=== PATIENT | male | born 1945 | race African-American/Black ===

== ENCOUNTER 2020-11-02 18:06 | Inpatient (IN) ==
[2020-11-02 20:40] LABS: Basophils # 0.1 K/mcL (0.0-0.2); Basophils % 0.4 %; Eosinophils # 0.1 K/mcL (0.0-0.6); Eosinophils % 1.1 %; Hematocrit 44.7 % (37.5-50.1); Hemoglobin 13.8 g/dL (12.9-16.9); Immature Granulocytes % 0.2 % (0-4); Lymphocytes # 2.6 K/mcL (0.6-4.6); Lymphocytes % 20.1 %; Mean Corpuscular HGB Conc 30.9 g/dL (31.6-35.5); Mean Corpuscular Hemoglobin 21.8 pg (28.0-33.3); Mean Corpuscular Volume 70.7 fL (83.0-100.0); Monocytes # 1.2 K/mcL (0.0-1.3); Monocytes % 9.3 %; Neutrophils # 8.9 K/mcL (1.6-8.9); Platelet Count 296 K/mcL (140-400); Red Blood Count 6.32 M/mcL (4.19-5.50); Red Cell Distribution Width 16.5 % (11.5-14.5); Segmented Neutrophils % 68.9 %; White Blood Count 12.9 K/mcL (4.3-11.1)
[2020-11-02 20:59] LABS: BUN/Creatinine Ratio 13 (6-26); Blood Urea Nitrogen 8 mg/dL (8-23); C-Reactive Protein 72 mg/L (Less than 10); Calcium 10.5 mg/dL (8.6-10.3); Carbon Dioxide 29 mEq/L (23-29); Chloride 101 mEq/L (98-107); Glucose 103 mg/dL (70-105); Osmolality,Calculated 287 (280-300); Potassium 3.6 mEq/L (3.5-5.1); Sodium 139 mEq/L (136-145); Uric Acid 7.5 mg/dL (2.3-7.6); eGFR For African Americans > 60 (> 60); eGFR For Non-African Americans > 60 (> 60)
[2020-11-03] MEDS ORDERED: *HR* HYDROcodone/Acet 5/325 mg TABLET PO ONE (01:13)
[2020-11-03] MEDS ORDERED: Acetaminophen 325 MG TABLET PO PRN (09:01)
[2020-11-03] MEDS ORDERED: Naloxone 0.4 MG/ML INJ IVP PRN (09:01)
[2020-11-03] MEDS ORDERED: *HR* HYDROcodone/Acet 5/325 mg TABLET PO PRN (09:01)
[2020-11-03] MEDS ORDERED: NIFEdipine XL (24 HR) 60 MG TAB.ER.24 PO ONE (14:07)
[2020-11-03] MEDS ORDERED: *HR* Metoprolol 5 MG/5 ML VIAL IVP PRN (15:20)
[2020-11-03] MEDS ORDERED: hydrOXYzine pamoate 25 MG CAPSULE PO PRN (17:40)
[2020-11-04] MEDS ORDERED: Haloperidol Lactate 5 MG/ML VIAL IVP ONE (01:20)
[2020-11-04] MEDS: Aspirin Enteric Coated 81 MG Tablet PO SCH (08:13)
[2020-11-04] MEDS: NIFEdipine XL (24 HR) 30 MG TAB.ER.24 PO SCH (08:13)
[2020-11-04 10:45] LABS: Hematocrit 44.4 % (37.5-50.1); Hemoglobin 13.8 g/dL (12.9-16.9); Mean Corpuscular HGB Conc 31.1 g/dL (31.6-35.5); Mean Corpuscular Hemoglobin 21.7 pg (28.0-33.3); Mean Corpuscular Volume 69.9 fL (83.0-100.0); Mean Platelet Volume 10.7 fL (9.4-12.4); Platelet Count 355 K/mcL (140-400); Red Blood Count 6.35 M/mcL (4.19-5.50); Red Cell Distribution Width 16.5 % (11.5-14.5)
[2020-11-04 11:04] LABS: BUN/Creatinine Ratio 18 (6-26); Blood Urea Nitrogen 13 mg/dL (8-23); Calcium 9.9 mg/dL (8.6-10.3); Carbon Dioxide 24 mEq/L (23-29); Chloride 99 mEq/L (98-107); Glucose 245 mg/dL (70-105); Osmolality,Calculated 288 (280-300); Potassium 3.4 mEq/L (3.5-5.1); Sodium 135 mEq/L (136-145); eGFR For African Americans > 60 (> 60); eGFR For Non-African Americans > 60 (> 60)
[2020-11-04] MEDS: QUEtiapine Fumarate 25 MG TABLET PO SCH (20:44)
[2020-11-05 02:25] LABS: Basophils % 0.4 %; Eosinophils # 0.4 K/mcL (0.0-0.6); Hematocrit 39.6 % (37.5-50.1); Hemoglobin 12.3 g/dL (12.9-16.9); Immature Granulocytes % 0.3 % (0-4); Lymphocytes % 28.6 %; Mean Corpuscular HGB Conc 31.1 g/dL (31.6-35.5); Mean Corpuscular Hemoglobin 21.8 pg (28.0-33.3); Mean Corpuscular Volume 70.1 fL (83.0-100.0); Mean Platelet Volume 10.8 fL (9.4-12.4); Monocytes # 0.9 K/mcL (0.0-1.3); Monocytes % 8.7 %; Platelet Count 332 K/mcL (140-400); Red Blood Count 5.65 M/mcL (4.19-5.50); White Blood Count 10.4 K/mcL (4.3-11.1)
[2020-11-05 02:42] LABS: BUN/Creatinine Ratio 24 (6-26); Blood Urea Nitrogen 15 mg/dL (8-23); Calcium 9.3 mg/dL (8.6-10.3); Carbon Dioxide 25 mEq/L (23-29); Chloride 102 mEq/L (98-107); Glucose 105 mg/dL (70-105); Osmolality,Calculated 281 (280-300); Potassium 3.8 mEq/L (3.5-5.1); Sodium 135 mEq/L (136-145); eGFR For African Americans > 60 (> 60); eGFR For Non-African Americans > 60 (> 60)
[2020-11-05] MEDS: Aspirin Enteric Coated 81 MG Tablet PO SCH (07:26)
[2020-11-05] MEDS: NIFEdipine XL (24 HR) 30 MG TAB.ER.24 PO SCH (07:43)
[2020-11-05] MEDS: amLODIPine 5 MG TABLET PO SCH ×2 (11:19→21:13)
[2020-11-05] MEDS: QUEtiapine Fumarate 25 MG TABLET PO SCH (21:13)
[2020-11-06 07:35] VITALS: BP 150/71
[2020-11-06] MEDS: amLODIPine 5 MG TABLET PO SCH (09:21)
[2020-11-06] MEDS: Aspirin Enteric Coated 81 MG Tablet PO SCH (09:21)
== END 2020-11-06 13:50 | DRG 556 ==
LOC: EMEROOARM 18:06 → 3ANU 18:06 → SUATTDRO 11-03 12:44
PROVIDERS: ADMIT Internal Medicine; ATTEND Student in an Organized Health Care Education/Training Program